=== PATIENT | female | born 2005 | race Caucasian/White ===

== ENCOUNTER 2023-06-04 10:31 | Outpatient (REF) | payer OTHER, SELFPAY ==
--- NOTE | ~2023-06-04 | US_ITS ---
EXAMINATION: US PELVIS CLINICAL INFORMATION: Check IUD placement. Secondary amenorrhea. LMP 3 months ago. COMPARISON: None available. TECHNIQUE: Ultrasound of the pelvis is performed using both transabdominal and transvaginal transducers along with Doppler. Transvaginal imaging is performed due to inadequate visualization transabdominally. FINDINGS: Uterus: The uterus is anteverted. The uterus measures 7.9 x 3.5 x 4.0 cm. The endometrial stripe measures 0.6 cm in thickness. The intrauterine device is low lying within the endocervical canal. Adnexa: There is no pelvic ascites or fluid collection. Right ovary measures 2.9 x 3.9 x 2.9 cm. 13.0 mL. Left ovary measures 2.7 x 4.0 x 1.7 cm. 5.8 mm. US/US pelvic and transvaginal IMPRESSION: Low-lying intrauterine device within the endocervical canal. Increased right ovarian volume.
== END 2023-06-04 10:32 | disposition home or self-care (01) ==
LOC: HO.UMASIMG 10:31
PROVIDERS: Visit Provider Family Medicine
DX: Z30.431 Encounter for routine checking of intrauterine contraceptive device (principal); N91.1 Secondary amenorrhea
CPT/HCPCS: 76830; 76856

== ENCOUNTER 2023-07-21 09:04 | Outpatient (REF) | payer OTHER, SELFPAY ==
--- NOTE | ~2023-07-21 | US_ITS ---
EXAM: Pelvic Ultrasound CLINICAL INDICATION: IUD check COMPARISON: Pelvic ultrasound 06/04/2023 TECHNIQUE: The pelvis was evaluated using transabdominal and transvaginal imaging. FINDINGS: The uterus measures 7.4 x 4.0 x 3.8 cm in longitudinal by AP by transverse dimension. The endometrial stripe is not thickened and measures 1.3 cm. IUD is again noted to be low-lying within the uterus and partially within the upper cervix. The left ovary measures approximately 2.2 x 2.9 x 2.5 cm and is normal. The right ovary measures approximately 2.4 x 2.5 x 4.2 cm and is also normal. Spectral analysis reveals normal arterial and venous waveforms in the bilateral ovaries. There are no abnormal adnexal masses. There is no free fluid in the pelvis. US/US pelvic and transvaginal IMPRESSION: IUD again noted to be low-lying within the uterus and partially within the upper cervix.
== END 2023-07-21 09:05 | disposition home or self-care (01) ==
LOC: HO.UMASIMG 09:04
PROVIDERS: Visit Provider Family Medicine
DX: Z30.431 Encounter for routine checking of intrauterine contraceptive device (principal); N91.1 Secondary amenorrhea
CPT/HCPCS: 76830; 76856